=== PATIENT | female | born 1980 | race Caucasian/White ===

== ENCOUNTER 2019-02-13 14:17 | Emergency (ER) | payer OTHER ==
[~2019-02-13] VITALS: Ht 167.6 cm; Wt 110.5 kg
[~2019-02-13 14:17] MED LIST: IBUP-1223 PO; NIFE90TA PO; OXYC-302 PO; ZOLP-413 PO
--- NOTE | 2019-02-13 14:39 | NUR ---
PT AMBULATORY TO BATHROOM WITH STEADY GAIT FOR URINE SAMPLE.
[2019-02-13 15:09] LABS: ALANINE AMINOTRANSFERASE 9 U/L (12-78); ALBUMIN 3.9 g/dL (3.4-5.0); ANION GAP 7 mmol/L (5-15); CALCIUM 8.9 mg/dL (8.5-10.1); CHLORIDE 107 mmol/L (98-107); CREATININE 0.71 mg/dL (0.55-1.02)
[2019-02-13 15:11] LABS: ALKALINE PHOSPHATASE 119 U/L (45-117); BILIRUBIN,TOTAL 0.9 mg/dL (0.2-1.0)
[2019-02-13 15:14] LABS: MEAN CORPUSCULAR HEMOGLOBIN 17.4 pg (27.0-34.8); MEAN CORPUSCULAR HGB CONC 30.4 g/dL (32.4-35.8); MEAN CORPUSCULAR VOLUME 57.2 fL (80-100); PLATELET COUNT 400 x10^3/uL (130-400)
[2019-02-13 15:17] LABS: MICROSCOPIC AUTO
[2019-02-13 15:21] LABS: CULTURE INDICATED? YES
[2019-02-13 16:00] LABS: MD YES
[2019-02-13 16:02] LABS: BAND#(MANUAL) 0.41 x10^3/uL; BANDS%(MANUAL) 5 % (0-7); LYMPH#(MANUAL) 0.57 x10^3/uL (1-3.4); LYMPHS% (MANUAL) 7 % (22-44); MONOS#(MANUAL) 0.57 x10^3/uL (0.3-2.7); MONOS% (MANUAL) 7 % (2-9); SEG#(MANUAL) 6.64 x10^3/uL (1.8-6.8); SEGS% (MANUAL) 81 % (42-75)
[2019-02-13 16:04] LABS: ANISOCYTOSIS 2+; HYPOCHROMIA 2+; MICROCYTOSIS 2+; POLYCHROMASIA 1+
[2019-02-13 16:05] LABS: OVALOCYTES 2+
[2019-02-13 16:07] LABS: <PLATELET ESTIMATE> ADEQUATE; <PLT MORPHOLOGY> NORMAL PLT MORPH
[2019-02-13 16:41] VITALS: BP 135/59
--- NOTE | 2019-02-13 16:42 | NUR ---
PT RESTING ON GURNEY. ANDERSON
--- NOTE | 2019-02-13 17:43 | NUR ---
Patient/Caregiver given discharge instructions and they have confirmed that they understand the instructions. Patient ambulatory with steady gait. Pt left with all personal belongings.
== END 2019-02-13 17:53 | disposition home or self-care (01) ==
LOC: ED 16:53
DX: D50.0 Iron deficiency anemia secondary to blood loss (chronic) (principal); R53.1 Weakness
CPT/HCPCS: 36415; 80053; 81001; 81025; 82728; 83540; 83550; 83615; 83690; 85025; 87086; 99283

== ENCOUNTER 2019-02-16 20:59 | Emergency (ER) | payer OTHER ==
[~2019-02-16] VITALS: Ht 167.6 cm; Wt 109.1 kg
[2019-02-16 21:07] VITALS: BP 156/87
[2019-02-16] MEDS ORDERED: IRON PILL (21:27)
[2019-02-16] MEDS ORDERED: DEXAMETHASONE 4 MG TABLET ONE (21:46)
--- NOTE | 2019-02-16 21:49 | NUR ---
PT MEDICATED PER MAR
[2019-02-16] MEDS ORDERED: DEXAMETHASONE 4 MG TABLET PO ONE (22:00)
== END 2019-02-16 22:21 | disposition home or self-care (01) ==
LOC: ED 22:01
DX: J02.8 Acute pharyngitis due to other specified organisms (principal); B97.89 Other viral agents as the cause of diseases classified elsewhere
CPT/HCPCS: 87081; 87880; 99283